=== PATIENT | female | born 1970 | race Caucasian/White ===

== ENCOUNTER → 2017-03-04 | Outpatient (CLI) | payer OTHER | END | disposition home or self-care (01) | LOC: C.PAPS 14:24 | PROVIDERS: ATTEND Obstetrics & Gynecology | DX: Z12.4 Encounter for screening for malignant neoplasm of cervix (principal) ==

== ENCOUNTER 2025-04-17 05:58 | Observation (INO) ==
--- NOTE | 2025-04-04 11:36 | PAT Medication Instructions ---
Medication Instructions Date of Service April 04, 2025 Home Medications Medication Instructions Recorded tizanidine 4 mg tablet 4 mg PO BID PRN muscle spasticity 03/13/25 #30 tabs atenolol 25 mg tablet 25 mg PO QAM meloxicam 7.5 mg tablet 7.5 mg PO QAM venlafaxine 150 mg tablet,extended release 24 hr 150 mg PO HS tizanidine 4 mg tablet 4 mg PO BID PRN muscle spasticity acetaminophen 500 mg tablet 2,000 mg PO Q6H PRN Pain guar gum 2 tbsp PO DAILY PRN Constipation hydrochlorothiazide 12.5 mg tablet 12.5 mg PO QAM ASK your surgeon for instructions meloxicam 7.5 mg tablet 7.5 mg PO QAM STOP taking 2 weeks before surgery (or as soon as possible): guar gum 2 tbsp PO DAILY PRN Constipation DO NOT take the morning of surgery hydrochlorothiazide 12.5 mg tablet 12.5 mg PO QAM Take morning of surgery With a small sip of water, OTHERWISE NOTHING TO EAT OR DRINK AFTER MIDNIGHT: atenolol 25 mg tablet 25 mg PO QAM tizanidine 4 mg tablet 4 mg PO BID PRN muscle spasticity (if needed) acetaminophen 500 mg tablet 2,000 mg PO Q6H PRN Pain (if needed) Take evening before surgery venlafaxine 150 mg tablet,extended release 24 hr 150 mg PO HS tizanidine 4 mg tablet 4 mg PO BID PRN muscle spasticity (if needed) acetaminophen 500 mg tablet 2,000 mg PO Q6H PRN Pain (if needed) Other Notes If you have any questions please call us at [phone] or [phone] or [phone] or [phone]
--- NOTE | 2025-04-05 10:18 | Anesthesiology Consultation ---
Date of Service April 05, 2025 Assessment & Plan (1) Encounter for pre-operative examination: Chart Review Chart Review: Acceptable Risk for Surgery and Patient seen in Pre Admission Testing - Check test AM DOS - Discussed case with Dr. Taveras- no further work up/follow up needed. Patient's medical conditions optimized- she may proceed as scheduled Per PAT appt on 04/05/25, no recent illness/disease exposures, illness related symptoms, or recent illness/disease positive tests. Will leave to surgeon's discretion if preop Covid testing needed Teaching & Discussion Pre-Anesthesia Teaching/Discussion Notes: Instructed NPO after midnight before surgery,except medications with 15 cc of water. Medication instructions provided according to the PAT guidelines. History Surgery Operation Date: 04/17/25 07:30 Proposed Procedures p C5-C6, C6-C7 Cervical Artificial Disc Arthroplasty - Cisco Argueta MD Height/Weight Height: 5 ft 3 in Weight: 117.7 kg Allergies Allergy/AdvReac Type Severity Reaction Status Date / Time adhesive tape Allergy Unknown Rash: need Verified 04/04/25 09:58 to use paper tape meperidine [From Demerol] Allergy Unknown can't have Verified 04/04/25 09:58 demerol after anesthesia " i don't wake up" Medications Home Medications Medication Instructions Recorded Confirmed Last Taken atenolol 25 mg tablet 25 mg PO QAM 02/14/24 04/04/25 02/23/24 07:12 meloxicam 7.5 mg tablet 7.5 mg PO QAM 02/14/24 04/04/25 Unknown venlafaxine 150 mg tablet,extended 150 mg PO HS 02/14/24 04/04/25 Unknown release 24 hr tizanidine 4 mg tablet 4 mg PO BID PRN muscle spasticity 03/13/25 04/04/25 Unknown #30 tabs acetaminophen 500 mg tablet 2,000 mg PO Q6H PRN Pain 04/04/25 04/04/25 Unknown guar gum 2 tbsp PO DAILY PRN Constipation 04/04/25 04/04/25 Unknown hydrochlorothiazide 12.5 mg tablet 12.5 mg PO QAM 04/04/25 04/04/25 Unknown Past Medical History Medical History (Updated 04/05/25 @ 10:12 by Rhona Pal PA-C) Anxiety Cervical disc disorder pain into right arm Depression Diarrhea has been taking benefiber daily since colonoscopy 01/2025. advised to discuss with gastro doctor History of anesthesia reaction - Pt reports can't have Demerol after anesthesia " I don't wake up" : following surgery will start to come out of/had Demerol then went back under - 2000- stopped breathing post op night after surgery - patient has no specifics (possibly due to Demerol)- no issues with stopping breathing post op with subsequent surgeries - 2013- shallow breathing post op- low oxygen levels - slow to wake - very groggy- no known reintubation History of stroke - incidental finding on MRI years ago (pt. can't recall where this was at) - no deficits HTN (hypertension) Knee pain, bilateral Sleep apnea cpap Exercise / Class Metabolic Activity III < 4 Walking/Shop/Light housework (one flight of stairs - mild SOB, no chest pain ) Past Surgical History Surgical History (Updated 04/05/25 @ 10:12 by Rhona Pal PA-C) History of ankle surgery left/hardware History of arthroplasty of right shoulder (2019) rotator cufff tear History of colonoscopy (01/2025) had 01/2025 in [place] History of esophagogastroduodenoscopy (EGD) History of foot surgery multiple - right History of removal of cyst multiple History of umbilical hernia repair S/P carpal tunnel release (01/2024) right side [place] teeth removed Past Anesthesia History No Hx of Anesthesia Complications (with exception to slow to wake and remote history of low oxygen level ) and No Family Hx of Anesthesia Complications History of PONV No Hx of PONV and No Hx of Motion Sickness Social History Smoking Status: Current every day smoker Smoking cigarettes per day: 1 pack every 3 days; recently up to 1 pack/daily (advised) Do You Dip or Chew Tobacco: No Hx Alcohol Use: No Alcohol type: beer alcohol intake frequency: 3 or more drinks per day (6-12 beers daily - quit Aug 2024) Hx Substance Use: No substance use type: does not use Review of Systems Patient denies chest pain, shortness of breath at rest, reflux, cough, wheezing, palpitations. No hx of seizures, SC. No hx of blood clots or blood transfusions Physical Exam Vital Signs VITALS BP 117/64 P 64 TEMP 97.8 SP02 97% RESP 16 Constitutional no acute distress ENMT Mouth: no TMJ clicking Thyromental Distance: > or= 3.5 Finger Breadths (3.5) Mallampati Class: I Mouth / Teeth: 2 1. Broken molar Neck + limited neck extension Respiratory normal respiratory effort; no respiratory distress Auscultation: lungs clear to auscultation bilaterally and + diminished lung sounds (mildly throughout ); no wheezes Cardiovascular Rate/Rhythm: regular rate and regular rhythm Heart Sounds: no murmur Vessels: no carotid bruit Musculoskeletal Spine: + pain with cervical ROM Extremities: extremities normal to inspection Psychiatric Orientation: alert Lab Results Anesthesia Preop Results Results Anesthesia Widget: 2 WBC 5.50 K/ul (4.8-10.8) 04/05/25 Hgb 11.5 g/dl (12.0-16.0) L 04/05/25 Hct 35.1 % (37.0-47.0) L 04/05/25 Plt 165 K/uL (130-400) 04/05/25 Na 137 mmol/L (136-145) 04/05/25 K 4.0 mmol/L (3.5-5.1) 04/05/25 Cl 104 mmol/L (98-107) 04/05/25 CO2 27 mmol/L (21-32) 04/05/25 BUN 26 mg/dl (6-23) H 04/05/25 Creat 0.72 mg/dl (0.6-1.2) 04/05/25 Glucose Level 150 mg/dl (70-99(Fasting)) H 04/05/25 PT 10.3 Seconds (9.0-12.0) 04/05/25 PTT 27 Seconds (21-31) 04/05/25 INR 0.9 (0.9-1.1) 04/05/25 Blood Type O Negative 04/05/25 Antibody Screen NEGATIVE 04/05/25 Testing Electrocardiogram Date: 04/05/25 Findings: + NSR @ (61bpm ) Nonspecific T wave abnormality Other Testing CT Chest Lung Cancer Screening 01/21/25= No suspicious pulmonary nodule or substantial intrathoracic adenopathy is appreciated. No consolidative process or pleural effusion. Trachea and major airways appear patent.
[2025-04-17] MEDS: LR 15ML/HR IV SCH ×2 (06:34→06:35)
[2025-04-17] MEDS: GABAPENTIN 600 MG DOSE PO SCH (06:35)
[2025-04-17] MEDS: ACETAMINOPHEN 500 MG TAB PO SCH (06:35)
[2025-04-17] MEDS ORDERED: ePHEDrine sulfate 50 MG/ML AMP IV PRN (06:41)
[2025-04-17] MEDS ORDERED: ONDANSETRON INJ 2 MG/ML 2 ML VIAL IV PRN ×2 (06:41→12:05)
[2025-04-17] MEDS ORDERED: ATROPINE SULFATE 0.1 MG/ML 10ML SYR IV PRN (06:41)
[2025-04-17] MEDS ORDERED: fentaNYL citrate PF 100 MCG/2 ML VIAL ONE ×2 (06:46→09:14)
[2025-04-17] MEDS ORDERED: MIDAZOLAM HCL 1 MG/ML 2ML VIAL ONE (06:46)
[2025-04-17] MEDS ORDERED: LIDOCAINE 2% 2 ML VIAL/AMP(20MG/ML) INFIL ONE (06:46)
[2025-04-17] MEDS ORDERED: DEXAMETHASONE SOD INJ 4 MG/ML VIAL ONE (06:46)
[2025-04-17] MEDS ORDERED: SODIUM CHLORIDE 0.9% PF INJ 10 ML VIAL ONE (06:46)
[2025-04-17] MEDS ORDERED: ONDANSETRON INJ 2 MG/ML 2 ML VIAL ONE ×2 (06:46→08:11)
[2025-04-17] MEDS ORDERED: DexMEDEtomidine HCL IV 100 MCG/ML VIAL IV ONE (06:46)
[2025-04-17] MEDS ORDERED: PROPOFOL IV EMULSION 10 MG/ML 20 ML VIAL IV ONE (06:46)
[2025-04-17] MEDS ORDERED: ROCURONIUM BROMIDE 10 MG/ML 5 ML VIAL IV ONE ×5 (06:46→10:59)
[2025-04-17] MEDS ORDERED: GLYCOPYRROLATE 0.2 MG/ML VIAL ONE (06:55)
--- NOTE | 2025-04-17 07:18 | History & Physical Bridge Note ---
Date of Service April 17, 2025 History & Physical Bridge Note I have examined the patient, reviewed the History & Physical and in the interval since the performance of the History & Physical I have noted the following changes of clinical significance: no changes noted
[2025-04-17] MEDS ORDERED: KETAMINE HCL 10MG/ML SYR ONE (08:06)
[2025-04-17] MEDS: ceFAZolin 2000MG 2,000 MG/15 ML SYR IV SCH (08:16)
[2025-04-17] MEDS ORDERED: PHENYLEPHRINE 100MCG/ML 5ML SYR ONE (08:49)
[2025-04-17] MEDS ORDERED: ePHEDrine sulfate 50 MG/5 ML SYR ONE (08:49)
[2025-04-17] MEDS: VANCOMYCIN HCL 1000MG/20ML VIAL ONE (09:06)
[2025-04-17] MEDS ORDERED: ESMOLOL HCL INJ 10 MG/ML 10ML VIAL IV ONE (09:22)
[2025-04-17] MEDS ORDERED: SUGAMMADEX SODIUM 200 MG/2 ML VIAL IV ONE (11:32)
[2025-04-17] MEDS ORDERED: LARYING-O-JET KIT (LTA) ONE (11:42)
[2025-04-17] MEDS ORDERED: KETOROLAC 30 MG/ML VIAL ONE (11:43)
[2025-04-17] MEDS: GELATIN SPONGE 12-7MM ONE (11:44)
[2025-04-17] MEDS: THROMBIN 5000 UNITS KIT ONE (11:44)
[2025-04-17] MEDS: FLOSEAL HEMOSTATIC MATRIX 5ML TOP ONE (11:45)
[2025-04-17] MEDS ORDERED: LORazepam 2 MG/1 ML VIAL IV PRN (12:05)
[2025-04-17] MEDS ORDERED: SOD PHOSPHATE/SOD BIPHOSPHATE ENEMA 132 ML BTL PR PRN (12:05)
[2025-04-17] MEDS ORDERED: MAGNESIUM HYDROXIDE SUSP 30 ML UDC PO PRN (12:05)
[2025-04-17] MEDS ORDERED: ALUMINUM/MAGNESIUM SUSP 30 ML UDC PO PRN (12:05)
[2025-04-17] MEDS ORDERED: diphenhydrAMINE Capsule 25 MG CAP PO PRN (12:05)
[2025-04-17] MEDS ORDERED: METOCLOPRAMIDE HCL INJ 5 MG/ML 2 ML VIAL IV PRN (12:05)
[2025-04-17] MEDS ORDERED: DO NOT ADMINISTER PNEUMOCOCCAL VACCINE PRN (12:05)
[2025-04-17] MEDS ORDERED: LORazepam 0.5 MG TAB PO PRN (12:05)
[2025-04-17] MEDS ORDERED: RACEPINEPHRINE 2.25% NEBU SOLN 0.5 ML VIAL INH PRN (12:05)
[2025-04-17] MEDS ORDERED: bisacodyL 10 MG SUPP PR PRN (12:05)
[2025-04-17] MEDS ORDERED: hydrOXYzine HCl 25 MG TAB PO PRN (12:05)
[2025-04-17] MEDS ORDERED: dexAMETHasone 8 MG in SYRINGE 0 ML IV PRN (12:05)
[2025-04-17] MEDS ORDERED: NALOXONE HCL 0.4 MG/1 ML VIAL/CARP IV PRN (12:05)
[2025-04-17] MEDS ORDERED: ONDANSETRON 4 MG OD TAB PO PRN (12:05)
[2025-04-17] MEDS ORDERED: FAMOTIDINE 20 MG TAB PO PRN (12:05)
[2025-04-17] MEDS ORDERED: DO NOT ADMINISTER FLU VACCINE PRN (12:05)
[2025-04-17] MEDS ORDERED: PROMETHAZINE 12.5 MG/50.5 ML BAG IV PRN (12:05)
--- NOTE | 2025-04-17 12:05 | Post Operative Brief Note ---
PG Immediate Post Op with CF Date of Surgery April 17, 2025 Pre & Post Diagnosis Operation Date: 04/17/25 07:30 Pre-Op Diagnosis: Cervical Disc Disorder at C5-C6 and C6-C7 Level with Radiculopathy Post-Op Diagnosis: Cervical Disc Disorder at C5-C6 and C6-C7 Level with Radiculopathy I identified the patient and participated in the time-out.: Yes Procedure Operation Date: 04/17/25 07:30 Actual Procedures p C5-C6, C6-C7 Cervical Artificial Disc Arthroplasty(Not Applicable) - Cisco Argueta MD Surgeon Cisco Argueta MD Clinical Staff Pharmacist Epi De Leon Estimated Blood Loss 15 Findings Consistent with Post-Op Diagnosis Specimens Specimen Description: None per surgeon Drains Parker Catheter (inserted by María Trevizo RN after induction of anesthesia at surgeon request, removed at end of procedure.) and Dwain-Bland Drain
[2025-04-17] MEDS ORDERED: PSYLLIUM HUSK 4GM PACKET PO PRN (12:34)
[2025-04-17] MEDS: HYDROmorphone INJ 2 MG/ML SYR/VIAL IV PRN (12:40)
[2025-04-17 13:12] LABS: BUN Creatinine Ratio 31.7 (10-20); Calcium 8.9 mg/dl (8.6-10.3); Creatinine Clr Calc Pharmacy 128.3 ml/min; Potassium 4.5 mmol/L (3.5-5.1)
--- NOTE | 2025-04-17 13:46 | Fluoroscopy Report ---
FL cervical 2-3V CLINICAL HISTORY: C5-6 C6-7 ARTIFICIAL DISC ARTHROPLASTY COMPARISON STUDY: None FLUOROSCOPY TIME: 175 seconds FLUOROSCOPY IMAGES: 14 EXPOSURE DOSE: 173 mGy FINDINGS: Fluoroscopy was provided for lower cervical spine arthroplasty. IMPRESSION: Intraoperative fluoroscopy. ACT 112: Negative or not required by law. Electronically signed by: Leighton Earl M.D. 04/17/2025 1:44 PM
[2025-04-17] MEDS: ACETAMINOPHEN 1,000 MG/100 ML VIAL IV PRN (14:34)
--- NOTE | 2025-04-17 15:46 | Hospitalist Consultation ---
Date of Consultation April 17, 2025 Assessment & Plan (1) Cervical radiculopathy at C7: (2) Cervical pain (neck): (3) HTN (hypertension): (4) Sleep apnea: Plan #S/p cervical artificial disc arthroplasty Procedure on 04/[address] Argueta Pain management, DVT PPx, fluids, and perioperative antibiotics per the primary team Continue to wean off of supplemental oxygen postop Added on a.m. CBC, BMP; we will follow #Hypertension Patient has been mildly hypotensive postop Okay to continue atenolol the morning of 04/17 pending HR >60 in a.m. BP #Depression Continue venlafaxine #Sleep apnea Added on CPAP HS Disposition: Agree with current medical decision making; continued stay on MedSurg Thank you for allowing us to participate in the care of this patient; please reach out any questions or concerns. Will continue to follow. Supervising Physician Co-Signing Physician Notes Attending Attestation & Consult Note: Pt seen/examined, chart reviewed, consult care plan d/w YANI Edmondson. I agree w/ the henning components of his documentation. 55yo female with obesity, HTN, SHRUTHI, depression, tobacco use, and cervical radiculopathy. Presented today to undergo C5-C6 and C6-C7 cervical artificial disc arthroplasty with Dr. Argueta. I saw the patient post-op on the ortho floor and she only c/o posterior neck & upper scapular pain. Otherwise, no nausea, emesis, chest pain or dyspnea. She reported she did not bring her home CPAP unit; she was not sure of the settings on the unit. Denied any radicular pain or numbness of either arm/hand. PMH/PSH/allergies/meds/sochx - reviewed pre-op labs reviewed - CBC with scant anemia (Hb 11.5) and glucose elevated at 150 I am uncertain if the glucose of 150 was fasting exam: VSS, afebrile gen - NAD, obese, resting comfortably in bed neck - no JVD, dressings intact L neck without apparent hematoma mouth - MM dry heart - RRR, s1 s2 lungs - CTA b/l, decreased BS bases b/l abd - soft NT ND BS+ ext - no edema, pulses 2+ b/l feet neuro - handgrip 5/5 b/l; arm flexion 5/5 A/P: 1. cervical spine DJD s/p C5-C6 & C6-C7 cervical artificial disc arthroplasty by Dr Argueta 2. hyperglycemia - check a1c in am; if elevated consider DM education prior to d/c; hyperglycemia will impede wound healing & her recovery 3. SHRUTHI - resume CPAP at home; she does not know her settings; will simply give NC O2 tonight 4. HTN - cont beta pritesh 5. tobacco use - smoking cessation needed thank you for this consult will follow with you Alfredito Villa MD History of Present Illness Reason for Consultation: Medical management Requesting Physician: Cisco Argueta MD Attending Physician: Cisco Argueta MD History of Present Illness Mrs. Wise is a 55-year-old female with PMH of carpal tunnel syndrome, depression, and cervical radiculopathy. She presented on 04/17 for a C5-C6, and C6/C7 cervical artificial disc arthroplasty with Dr. Argueta. Per review of previous operative note, EBL was listed as 15 cc, and findings were consistent with postop diagnosis. Per review of vitals postop, patient has been mildly bradycardic around 58 to 62 bpm, and hypertensive around 153/77; SpO2 96% on 2L oxy mask. At time of consult, patient's main concern is that she has difficulty getting comfortable in bed. She does have a dull/aching pain in the bottom of her neck, which she rates 4/10 at present. There is also intermittent stabbing pain, with occasional radiation down both arms. No radiation down the spine. She reports that prior to the surgery, she had numbness and tingling in her left 1st and 2nd digits, but this is much improved from prior. She did get up to use the bathroom at one point after the operation, and reports that she did okay with this. She has been drinking well since the operation. No difficulty swallowing, but she does report it hurts to swallow. Patient is not on supplemental oxygen at baseline, but she does use a CPAP at night. Patient reports that she took her atenolol this morning; no other medications. Not currently on blood thinners. No prior history of DVT/PE. ROS: Patient endorses neck discomfort, dry cough, and pain with swallowing. Patient denies fever, chills, night sweats, headache, changes in vision, chest pain, chest palpitations, SOB, pleuritic CP, abdominal pain, N/V/D, changes in urinary bowel habits, swelling/erythema in the legs, or numbness or tingling in arms or legs. Allergies Allergy/AdvReac Type Severity Reaction Status Date / Time adhesive tape Allergy Mild Rash: need Verified 04/17/25 06:17 to use paper tape meperidine [From Demerol] AdvReac Unknown can't have Verified 04/17/25 06:17 demerol after anesthesia " i don't wake up" Home Medications Medication Instructions Recorded Confirmed Type atenolol 25 mg tablet 25 mg PO QAM 02/14/24 04/17/25 History meloxicam 7.5 mg tablet 7.5 mg PO QAM 02/14/24 04/17/25 History venlafaxine 150 mg tablet,extended 150 mg PO HS 02/14/24 04/17/25 History release 24 hr acetaminophen 500 mg tablet 2,000 mg PO Q6H PRN Pain 04/04/25 04/17/25 History guar gum 2 tbsp PO DAILY PRN Constipation 04/04/25 04/17/25 History tizanidine 4 mg tablet (Zanaflex) 4 mg PO BID PRN muscle spasticity 04/17/25 04/17/25 History Patient History Medical History (Updated 04/18/25 @ 09:51 by Alfredito Villa MD) Sleep apnea cpap Anxiety Diarrhea has been taking benefiber daily since colonoscopy 01/2025. advised to discuss with gastro doctor History of stroke - incidental finding on MRI years ago (pt. can't recall where this was at) - no deficits Cervical disc disorder pain into right arm Knee pain, bilateral History of anesthesia reaction - Pt reports can't have Demerol after anesthesia " I don't wake up" : following surgery will start to come out of/had Demerol then went back under - 2000- stopped breathing post op night after surgery - patient has no specifics (possibly due to Demerol)- no issues with stopping breathing post op with subsequent surgeries - 2013- shallow breathing post op- low oxygen levels - slow to wake - very groggy- no known reintubation Depression Surgical History (Updated 04/18/25 @ 09:02 by Juan Bustamante PA-C) History of umbilical hernia repair S/P carpal tunnel release (01/2024) right side History of arthroplasty of right shoulder (2019) rotator cufff tear History of esophagogastroduodenoscopy (EGD) [place] teeth removed History of ankle surgery left/hardware History of foot surgery multiple - right History of removal of cyst multiple History of colonoscopy (01/2025) had 01/2025 in [place] Social History Smoking Status: Current every day smoker Tobacco Type: Cigarettes Cigarettes Per Day: 1 pack every 3 days; recently up to 1 pack/daily (advised); Second Hand Exposure: No; Do You Dip or Chew Tobacco: No; Tobacco Cessation Education Requested by Patient: No Hx Alcohol Use: No Hx Substance Use: No Preferred Language: Marshallese Communication Ability: Effective Criminology Professor Required: No Beliefs That Will Affect Care: None Current Living Situation: Spouse Other Information That Helps Us Care for You: No Feels Safe at Home: Yes Safety Concerns: Feels Safe At This Time Assistive Devices: CPAP and Glasses Review of Systems Review of Systems: See HPI above Physical Exam Physical Exam: General: Mild distress secondary to neck discomfort; pleasant affect; non-toxic appearing; cooperative; SpO2 96% on 2L oxy mask HEENT: normocephalic, atraumatic; no scleral icterus; PERRLA w/ EOMs intact; vision and hearing grossly intact Neck: supple; trachea midline; surgical dressing in place without signs of drainage or erythema; posterior C-spine is nontender to palpation; patient demonstrates ability to shrug shoulders against resistance without pain or unilateral deficits Spine: Upper spine NTP; lower spine NTP Skin: warm, dry without signs of tenting; no cyanosis; no rashes, bruising, lesions, or erythema noted CV: chest wall NTP; RRR; S1/S2 normal; no murmurs/rubs/gallops; pulses intact and symmetric at radial, DP, and PT Lungs: no acute respiratory distress; symmetrical chest wall expansion; clear breath sounds across all lung abraham w/o adventitious sounds; no wheezing ABD: Soft, NTP; BS present; no rebound/guarding; no distention MSK: no tics or fasciculations; +1 edema noted in the LEs b/l, nonerythematous (SCDs and teds in place); patient demonstrates ability wiggle toes bilaterally Neuro: A&Ox3; normal mood and affect; fluent speech; no focal deficits; patient reports sensation is intact and symmetric in the lower extremities bilaterally assessed via light touch; feet are neurovascularly intact assessed at DP and PT pulse Results & Data Results & Data Vital Signs (Past 12 Hours) Vital Signs Temp Pulse Pulse Resp BP Pulse Ox Pulse Ox 04/17/25 15:15 36.6 C 62 16 153/77 H 96 04/17/25 14:45 62 16 97 04/17/25 14:40 36.5 C 62 16 147/76 H 96 04/17/25 14:25 95 04/17/25 14:05 36.7 C 62 16 134/76 95 04/17/25 13:40 36.9 C 58 L 14 154/77 H 94 04/17/25 13:30 57 L 14 142/80 H 95 04/17/25 13:20 58 L 16 135/90 96 04/17/25 13:10 58 L 15 148/79 H 97 04/17/25 13:00 57 L 15 140/79 96 04/17/25 12:50 61 18 147/88 H 95 04/17/25 12:40 65 22 154/96 H 100 04/17/25 12:30 64 20 150/91 H 98 04/17/25 12:20 66 18 149/104 H 99 04/17/25 12:13 36.2 C L 84 16 149/95 H 99 04/17/25 06:22 36.5 C 59 L 22 179/79 H 98 O2 Del Method O2 Del Method O2 Flow Rate O2 Flow Rate 04/17/25 15:15 Oxymask 2 04/17/25 14:45 Oxymask 2 04/17/25 14:40 Oxymask 2 04/17/25 14:25 Oxymask 2 04/17/25 14:05 Oxymask 2 04/17/25 13:40 Oxymask 2 04/17/25 13:30 Oxymask 4 04/17/25 13:20 Oxymask 4 04/17/25 13:10 Oxymask 4 04/17/25 13:00 Oxymask 4 04/17/25 12:50 Oxymask 4 04/17/25 12:40 Oxymask 4 04/17/25 12:30 Oxymask 4 04/17/25 12:20 Oxymask 6 04/17/25 12:13 Oxymask 10 04/17/25 06:22 Room Air Laboratory Results Abnormal lab results 04/17/25 Range/Units 12:29 BUN/Creatinine Ratio 31.7 H (10-20) Glucose 140 H (70-99(Fasting)) mg/dl Diagnostic Findings Cervical Spine X-Ray 04/17/25 07:30 FL cervical 2-3V CLINICAL HISTORY: C5-6 C6-7 ARTIFICIAL DISC ARTHROPLASTY COMPARISON STUDY: None FLUOROSCOPY TIME: 175 seconds FLUOROSCOPY IMAGES: 14 EXPOSURE DOSE: 173 mGy FINDINGS: Fluoroscopy was provided for lower cervical spine arthroplasty. IMPRESSION: Intraoperative fluoroscopy. ACT 112: Negative or not required by law. Electronically signed by: Leighton Earl M.D. 04/17/2025 1:44 PM PG Care Time/CCT Total # of Minutes Spent Total Time Spent with Patient: Total time spent is greater than 50% in coordination of care (as documented) at patient's floor/unit and/or counseling patient: [place] [address] IN/OBS CONSULT LVL 3,45M Patient Type Established Medical Decision Making Moderate Complexity Diagnoses Cervical radiculopathy at C7 M54.12 Cervical pain (neck) M54.2 HTN (hypertension) I10 Sleep apnea G47.30
[2025-04-17] MEDS: HYDROCODONE/ACETAMINOPHEN 7.5/325MG TAB PO PRN (19:36)
[2025-04-17] MEDS: DOCUSATE SODIUM/SENNA 50/8.6MG TAB PO SCH (20:39)
[2025-04-17] MEDS: MoRPHine SULFATE 2 MG/ML CARP IV PRN (20:39)
[2025-04-17] MEDS: VENLAFAXINE HCL XR 150 MG CAPXR PO SCH (21:03)
[2025-04-18] MEDS: POLYETHYLENE (MIRALAX) 17 GM PACK PO SCH (05:55)
[2025-04-18] MEDS: ATENOLOL 25 MG TABLET PO SCH (07:10)
[2025-04-18 07:44] LABS: Basophils # (auto) 0.01 K/uL (0.00-0.20); Basophils % (auto) 0.1 %; Eosinophils # (auto) 0.01 K/uL (0.00-0.50); Eosinophils % (auto) 0.1 %; Hemoglobin 10.8 g/dl (12.0-16.0); Immature Granulocytes # (auto) 0.03 K/uL (0.01-0.20); Immature Granulocytes % (auto) 0.4 %; Lymphocytes # (auto) 1.05 K/uL (1.20-3.40); Lymphocytes % (auto) 14.8 %; Mean Corpuscular Hemoglobin 32.4 pg (25.0-34.0); Mean Corpuscular Hgb Conc 32.7 g/dL (32.0-36.0); Mean Corpuscular Volume 99.1 fL (80.0-100.0); Mean Platelet Volume 10.7 fL (9.4-12.4); Monocytes # (auto) 0.52 K/uL (0.11-0.59); Monocytes % (auto) 7.3 %; Neutrophils # (auto) 5.46 K/uL (1.40-6.50); Neutrophils % (auto) 77.3 %; Platelet Count 175 K/uL (130-400); RDW Standard Deviation 54.5 fL (36.4-46.3); Red Blood Count 3.33 M/uL (4.20-5.40); White Blood Count 7.08 K/ul (4.8-10.8)
[2025-04-18 08:10] LABS: BUN Creatinine Ratio 21.1 (10-20); Calcium 9.3 mg/dl (8.6-10.3); Creatinine Clr Calc Pharmacy 83.9 ml/min; Potassium 3.9 mmol/L (3.5-5.1)
--- NOTE | 2025-04-18 09:04 | Orthopedic Progress Note ---
Date of Service April 18, 2025 Assessment & Plan (1) S/P cervical spinal fusion: * Continue Current Treatment * Disposition: Home * Daily treatment: Physical Therapy/ Occupational Therapy per protocol * Weight bearing status: WBAT * Clear liquid diet through POD2 * Pain control * Maintain Hemovac, please record output. Will assess for removal later today * Office/hospital f/u 2 weeks for progress check and staple/suture removal * Plan for discharge today pending PT/OT clearance, drain removal Subjective .Active Problems: S/p C5-7 ACDF 55 y/o female s/p C5-7 ACDF. Doing well overall, pain managed and improved function. Hypertensive this morning. Drain intact, serosanguineous output. Compliant with clear liquid diet. Denies fever/chills, chest pain/SOB, nausea/vomiting. Otherwise no complaints. Patient seen and examined, she had some improvement in her index and thumb on the right, still with some neck pain. No swallowing issues, limited drainage from DIANNA, serosanguineous. Blood pressure elevated, will consult with hospitalist regarding addressing blood pressure issues and will monitor drain output. Review of Systems All systems reviewed & are unremarkable except as noted in HPI & below. Physical Exam . * General: Alert and oriented, no acute distress * Constitutional: well-developed, well-nourished. * Respiratory: Normal respiratory effort, no distress * Gastrointestinal: No tenderness to palpation, no rigidity or guarding. * Skin: No rash or lesion. * Neurologic: Grossly normal * Musculoskeletal: Surgical dressing CDI. Cervical spine region without obvious deformity or overlying skin changes. Minimal tenderness of surgical region, otherwise no tenderness b/l UE. Neck ROM with minimal pain. AROM b/l shoulder flexion, elbow flexion/extension, wrist flexion/extension intact. Sensation intact radial/median/ulnar nerve distributions. Brisk capillary refill. Hemovac intact, scant serosanguineous output at time of exam. Results & Data Results & Data Laboratory Results . Diagnostic Findings . PG Care Time/CCT Total # of Minutes Spent Total Time Spent with Patient: Total time spent is greater than 50% in coordination of care (as documented) at patient's floor/unit and/or counseling patient: Coding Level of Care Code 30841 Post Operative Follow-Up Diagnoses S/P cervical spinal fusion Z98.1
[2025-04-18 10:29] LABS: Estimated Average Glucose 105 mg/dl; Hemoglobin A1C 5.3 % (4.5-5.6)
[2025-04-18] MEDS: hydrALAZINE HCL 20 MG/ML VIAL IV PRN (11:40)
--- NOTE | 2025-04-18 11:40 | Operative Report ---
PG Post Operative Report Pre & Post Diagnosis Operation Date: 04/17/25 07:30 Pre-Op Diagnosis: Cervical Disc Disorder at C5-C6 and C6-C7 Level with Radiculopathy Post-Op Diagnosis: Cervical Disc Disorder at C5-C6 and C6-C7 Level with Radiculopathy I identified the patient and participated in the time-out.: Yes Procedure Operation Date: 04/17/25 07:30 Actual Procedures p C5-C6, C6-C7 Cervical Artificial Disc Arthroplasty(Not Applicable) - Cisco Argueta MD Surgeon Cisco Argueta MD Recreation Superintendent Epi De Leon Estimated Blood Loss 15 Findings Consistent with Post-Op Diagnosis Specimens none Drains DIANNA Description of Procedure 1. C5-6 anterior decompression, artificial disc replacement Mobi-C 17 x 19 x 5 mm. ([id number]) 2. C6-7 anterior decompression, artificial disc replacement Mobi-C 17 x 19 x 5mm. ([id number]) Patient was taken the operating room and after adequate anesthesia was carefully placed on the OSI flattop table positioned for anterior approach to the cervical spine. Preprepped was performed, followed by additional positioning, fluoroscopy was brought in to catrachito for the appropriate location for the incision followed by prep and drape. Transverse incision was made in the left side carried down along the medial border the sternocleidomastoid and advanced down to the anterior aspect of the cervical spine confirmed fluoroscopically at C5-6 and C6-7. Soft tissues were then mobilized in the region of the procedure, under fluoroscopic control is able to insert distractor pins at C6 and C7, followed by placement of retractors. Operative microscope was brought in, I incised the anterior annulus followed by thorough discectomy at the C6-7 level. High-speed bur was utilized to remove posterior spondylosis across the level and removal of the posterior ligamentous structures down to the dura and out to the uncinates bilaterally. Upon completion, I went through trial selecting the size artificial disc replacements as noted. Imaging revealed this to be in excellent position, the distractor pin at C7 was then removed, Floseal and bone wax was applied, then this was then reinserted at the C5 level for the C5-6 procedure. In a similar fashion retractors were reset, anterior annulus was removed followed by thorough discectomy and then posterior decompression in a similar fashion with emphasis on the right side for the right sided stenosis. Upon completion I did additional checking with trial at select the same size artificial disc replacement which was then tapped into position without issue. Final inspection revealed no issues in terms of any bleeding or fluid collection, there was potential concern for a small amount of lymphatic drainage at the C6-7 level only, no consistent finding noted after the C6-7 level surgery or at the end of the surgery. A drain was placed as a precaution along with discussion with an ENT physician as to overall plan. The operative site was then closed with 3-0 interrupted Vicryl sutures followed by benzoin and Steri- Strips, sterile dressing was applied. The patient was taken recovery room in satisfactory condition. I attest to the content of the Intraoperative Record and any orders documented therein. Any exceptions are noted below.
--- NOTE | 2025-04-18 12:05 | Hospitalist Progress Note ---
Date of Service April 18, 2025 Assessment & Plan (1) Cervical radiculopathy at C7: (2) HTN (hypertension): (3) Sleep apnea: Plan 55-year-old female with PMH of carpal tunnel syndrome, depression, and cervical radiculopathy. She presented on 04/17 for a C5-C6, and C6/C7 cervical artificial disc arthroplasty with Dr. Argueta. Per review of previous operative note, EBL was listed as 15 cc, and findings were consistent with postop diagnosis. #S/p cervical artificial disc arthroplasty - Defer pain management, DVT PPx, fluids, and perioperative antibiotics to the primary team - No longer requiring supplemental oxygen, remains stable on room air - Mild acute blood loss anemia with postoperative Hgb 10.8. No indication for blood transfusion at this time #Hypertension - Continue atenolol 25 mg daily - Added IV Hydralazine 10 mg Q8h PRN with parameters due to systolic hypertension - Not many prior VS to review and determine patient's baseline BP, but per patient typically systolic BP ~150. Likely increased secondary to anesthesia, pain, inflammation from surgery - BP improved to 160/82 following 1 dose of IV Hydralazine #Depression - Continue venlafaxine #Sleep apnea - Continue CPAP HS Disposition: per primary team Thank you for allowing us to participate in the care of this patient; please reach out any questions or concerns. Will continue to follow. Admission and Anticipated Discharge Date Admission Date: April 17, 2025 Supervising Physician Co-Signing Physician Notes The patient was not seen by me. The chart was reviewed. Case discussed with YANI Constantino. Agree with assessment and plan Subjective Patient seen and evaluated at bedside. She appears very anxious. She reports feeling worried about her blood pressure being 180s/80s. She reports she has ongoing pain at the base of her head similar to her pain preoperatively. She also reports intermittent "sparkles" in her vision. Upon further questioning, she notes this occurs intermittently at home when she does not wear her glasses. She has not worn her glasses today. She denies chest pain, palpitations, or any unilateral deficits. We discussed that her systolic hypertension is likely reactionary from surgery (anesthesia, pain, inflammation) and I will start an as needed blood pressure medication with parameters. Encouraged her to utilize her pain regimen as having proper pain control is important for blood pressure management. No additional complaints or concerns at this time. Physical Exam Physical Exam: General: Nondiaphoretic, well-developed, well-nourished. Anxious and tearful. Neck: Surgical dressing in place, clean, dry, intact. Cardiac: Regular rate and rhythm without murmurs gallops or rubs. Pulm: Clear to auscultation bilaterally without wheezes, rales or rhonchi. Normal respiratory effort. 98% on room air. Abdominal: Soft, nontender, nondistended. Bowel sounds present. Neuro: A&O x3. No focal neurological deficits. Sensation intact to light touch in all extremities. Results & Data Results & Data Vital Signs (Past 12 Hours) Vital Signs Temp Pulse Resp BP Pulse Ox O2 Del Method O2 Flow Rate 04/18/25 11:14 97.9 F 64 16 187/87 H 96 Room Air 04/18/25 11:00 60 16 95 Room Air 04/18/25 09:15 97.7 F 62 16 163/75 H 96 Room Air 04/18/25 08:43 180/84 H 04/18/25 07:15 66 16 94 Room Air 04/18/25 06:35 97.9 F 65 16 190/80 H 94 Room Air 04/18/25 04:35 97.7 F 70 18 163/83 H 98 Nasal Cannula 2 04/18/25 02:35 97.7 F 67 16 169/82 H 97 Nasal Cannula 2 04/18/25 02:07 65 16 98 Nasal Cannula 2 04/18/25 00:35 97.5 F L 64 16 171/90 H 100 Nasal Cannula 2 Laboratory Results Reviewed CBC with differential Reviewed BMP PG Care Time/CCT Total # of Minutes Spent Total Time Spent with Patient: Total time spent is greater than 50% in coordination of care (as documented) at patient's floor/unit and/or counseling patient: Coding Level of Care Code 10401 SUB INP/OBS CARE 3/50MIN Diagnoses Cervical radiculopathy at C7 M54.12 HTN (hypertension) I10 Sleep apnea G47.30
[2025-04-18] MEDS: ACETAMINOPHEN 500 MG TAB PO PRN (21:23)
[2025-04-19] MEDS: tiZANidine HCL 4 MG TABLET PO PRN (04:26)
[2025-04-19 06:27] LABS: Hematocrit (blood only) 30.6 % (37.0-47.0); Mean Corpuscular Hemoglobin 32.9 pg (25.0-34.0); Mean Corpuscular Hgb Conc 32.7 g/dL (32.0-36.0); Mean Corpuscular Volume 100.7 fL (80.0-100.0); Mean Platelet Volume 10.5 fL (9.4-12.4); Platelet Count 158 K/uL (130-400); RDW Coefficient of Variation 15.3 % (11.5-14.5); RDW Standard Deviation 56.9 fL (36.4-46.3); Red Blood Count 3.04 M/uL (4.20-5.40); White Blood Count 7.12 K/ul (4.8-10.8)
--- NOTE | 2025-04-19 09:03 | Orthopedic Progress Note ---
Date of Service April 19, 2025 Subjective Patient seen and examined, she notes still some axial symptoms more in the right side base of the neck towards the trapezius, but arm symptoms improving. No swallowing issues at this time though sore. Drainage over shift 20 cc. Impression: Postop day 2 from anterior cervical decompression and artificial disc replacement C5-6 C6-7. Plan: Today I expressed to the patient that we will have medicine clear her regarding her blood pressure and other medical issues, upon that, she can discharge home, we will maintain the drain over the weekend until she returns to the office on Tuesday to see YANI Lomax and Dr. Reeves. I have instructed her to maintain a clear liquid diet over the weekend but on Tuesday morning to eat a normal regular breakfast to include eggs and toast, if there is no significant drainage on Tuesday afternoon, the drain can be removed. She will maintain antibiotics for 10 days, and limited number of oxycodone will be issued for over the weekend. Upon removal of the drain the patient can start taking showers, all these directions were reviewed with the patient in detail. Review of Systems All systems reviewed & are unremarkable except as noted in HPI & below. Physical Exam . Results & Data Results & Data Laboratory Results . Diagnostic Findings . PG Care Time/CCT Total # of Minutes Spent Total Time Spent with Patient: Total time spent is greater than 50% in coordination of care (as documented) at patient's floor/unit and/or counseling patient: Coding Level of Care Code 79366 Post Operative Follow-Up
[2025-04-19 12:13] VITALS: TEMP 97.9
[2025-04-19 14:17] VITALS: BP 145/87; PULSE 56; RESP 16; O2SAT 95
== END 2025-04-19 15:27 | disposition home or self-care (01) ==
LOC: ASU 05:58 → 3E 05:58